=== PATIENT | male | born 1990 | race Caucasian/White ===

== ENCOUNTER → 2023-01-04 | Outpatient (CLI) | payer OTHER ==
--- NOTE | 2023-01-06 10:21 | XR ---
EXAMINATION TYPE: XR wrist complete RT DATE OF EXAM: 01/04/2023 4:38 PM INDICATION: Patient age:Male; 32 years old; Reason for study: [id number] RT WRIST PAIN; [facility]. COMPARISON: None TECHNIQUE: right wrist was examined in the. Frontal, navicular, lateral, and oblique. FINDINGS: No acute osseous pathology, joint dislocation, or joint effusion. No evidence of any soft tissue swelling is seen. IMPRESSION: No acute osseous pathology.
== END | disposition home or self-care (01) ==
LOC: RADXRYALE 16:26
PROVIDERS: ATTEND Physician Assistant
DX: M25.531 Pain in right wrist (principal)